=== PATIENT | female | born 1990 | race Caucasian/White ===

== ENCOUNTER 2017-03-11 12:15 | Emergency (ER) | payer OTHER ==
[~2017-03-11 12:15] MED LIST: ADIPEX-P37.5 M1 PO; BACTRIM 400 MG-1 TAB PO; DELTASONE5 MG PO; FERROUS SULFAT324 MG PO; IBU800 M1 PO; MIRENA52 MG; PREDNISONE 20MG20 MG PO; PRENATAL PLUS1 TA1 PO; TAMIFLU 75MG CA75 MG PO
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
[2017-03-11 12:48] VITALS: BP 128/73
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
== END 2017-03-11 13:11 | disposition short-term general hospital (02) ==
LOC: ER 12:15
DX: O26.891 Other specified pregnancy related conditions, first trimester (principal); O16.1 Unspecified maternal hypertension, first trimester; S01.01XA Laceration without foreign body of scalp, initial encounter; Z3A.08 8 weeks gestation of pregnancy; V47.0XXA Car driver injured in collision with fixed or stationary object in nontraffic accident, initial encounter; Y92.410 Unspecified street and highway as the place of occurrence of the external cause; I10 Essential (primary) hypertension